=== PATIENT | male | born 1970 ===

== ENCOUNTER 2016-12-12 12:07 | Emergency (ER) | payer OTHER ==
[2016-12-12 12:24] VITALS: BP 122/85; PULSE 68; RESP 16; TEMP 98.8; O2SAT 99
[2016-12-12] MEDS ORDERED: Sodium Chloride 0.9% 1,000 ML IV STA (13:30)
--- NOTE | 2016-12-12 14:00 | ED PDOC ---
HPI: Abdomen Time Seen by Provider: 12/12/16 12:50 Chief Complaint (Nursing): Abdominal Pain Chief Complaint (Provider): abdominal pain History Per: Patient History/Exam Limitations: no limitations Additional Complaint(s): 46yo M in ED for eval of abdominal pain states that he noted pain to his abd and bloating sensation since the wknd after drinking selzter water without associated nausea vomiting diarrhea or fever. pt states that the abd pain has been improving and now only with mild cramping, however its concerned due to hx of diverticulitis. pt has GI appt January 03. denies diarrhea, bloody stool vomiting, fever Past Medical History Reviewed: Historical Data, Nursing Documentation, Vital Signs Vital Signs: Last Vital Signs Temp 98.8 F 12/12/16 12:21 Pulse 68 12/12/16 12:21 Resp 16 12/12/16 12:21 BP 122/85 12/12/16 12:21 Pulse Ox 99 12/12/16 15:13 - Medical History PMH: Diverticulitis Denies: Chronic Kidney Disease - Family History Family History: States: Unknown Family Hx - Immunization History Hx Tetanus Toxoid Vaccination: No Hx Influenza Vaccination: No Hx Pneumococcal Vaccination: No - Home Medications Home Medications: Ambulatory Orders Medication Instructions Recorded Multivit-Minerals/FA/Lycopene 1 tab PO DAILY 07/26/16 [One-A-Day Men's Tablet] Ciprofloxacin [Cipro] 500 mg PO Q12 #20 tab 07/28/16 metroNIDAZOLE [Flagyl] 500 mg PO Q8 #30 tab 07/28/16 Dicyclomine [Bentyl] 20 mg PO TID #30 tab 12/12/16 - Allergies Allergies/Adverse Reactions: Allergies Allergy/AdvReac Type Severity Reaction Status Date / Time No Known Allergies Allergy Verified 07/26/16 13:02 Review of Systems ROS Statement: Except As Marked, All Systems Reviewed And Found Negative Gastrointestinal: Positive for: Abdominal Pain (mild cramping ), Constipation. Negative for: Nausea, Vomiting Physical Exam - Reviewed Nursing Documentation Reviewed: Yes Vital Signs Reviewed: Yes - Physical Exam Appears: Positive for: Well, Non-toxic, No Acute Distress Head Exam: Positive for: ATRAUMATIC, NORMAL INSPECTION, NORMOCEPHALIC Skin: Positive for: Normal Color, Warm, DRY Eye Exam: Positive for: EOMI, Normal appearance, PERRL Cardiovascular/Chest: Positive for: Regular Rate, Rhythm Respiratory: Positive for: CNT, Normal Breath Sounds Back: Positive for: Normal Inspection Extremity: Positive for: Normal ROM Neurologic/Psych: Positive for: Alert, Oriented - Laboratory Results Result Diagrams: 12/12/16 13:50 12/12/16 13:50 - ECG O2 Sat by Pulse Oximetry: 99 - Progress ED Course And Treament: impression: colitis vs constipation-improving. will get flat and upright xray of abd and basic labs, fluids and pepcid- re-eval . Pt with elevated bilirubin pt will get UR of RUQ. Medical Decision Making Medical Decision Making: US and flat and upright abs xray are negative for any acute pathology other than mild constipation pt with elevated bilirubin will need f/u with pmd for f.u stable VS and well appearing no acute pain in ED Disposition - Clinical Impression Clinical Impression: Abdominal discomfort, Elevated bilirubin - Patient ED Disposition Is Patient to be Admitted: No Counseled Patient/Family Regarding: Studies Performed, Diagnosis, Need For Followup, Rx Given - Disposition Referrals: [facility] [Outside] [facility] [Outside] Disposition: Routine/Home Disposition Time: 16:05 Condition: STABLE Prescriptions: Dicyclomine [Bentyl] 20 mg PO TID #30 tab Instructions: Acute Abdominal Pain (ED)
[2016-12-12 14:11] LABS: BASO % 0.3 % (0.0-2.0); EOS # 0.4 K/uL (0.0-0.7); EOS % 3.8 % (0.0-4.0); HEMATOCRIT 43.9 % (35.0-51.0); LYMPH # 2.3 K/uL (1.0-4.3); LYMPH % 21.9 % (20.0-40.0); MEAN CELL VOLUME 90.4 fl (80.0-94.0); MEAN CORPUSCULAR HEMOGLOBIN 30.5 pg (27.0-31.0); MEAN CORPUSCULAR HGB CONC 33.7 g/dL (33.0-37.0); MEAN PLATELET VOLUME 11.4 fl (7.2-11.7); MONO # 1.2 K/uL (0.0-0.8); MONO % 11.9 % (0.0-10.0); NEUT # 6.5 K/uL (1.8-7.0); NEUT % 62.1 % (50.0-75.0); RED CELL DISTRIBUTION WIDTH 13.3 % (11.5-14.5); WHITE BLOOD COUNT 10.5 K/uL (4.8-10.8)
[2016-12-12 14:17] LABS: ALB/GLOB RATIO 1.3 (1.0-2.1); ALKALINE PHOSPHATASE 79 U/L (38-126); ALT/SGPT 33 U/L (21-72); AST/SGOT 22 U/L (17-59); BLOOD UREA NITROGEN 10 mg/dl (9-20); CALCIUM 9.4 mg/dL (8.4-10.2); CARBON DIOXIDE 28 mmol/L (22-30); CHLORIDE 103 mmol/L (98-107); GFR AFRICAN-AMERICAN > 60; GLUCOSE,RANDOM 90 mg/dL (75-110); LIPASE 45 U/L (23-300); POTASSIUM 3.8 MMOL/L (3.6-5.0); SODIUM 142 mmol/l (132-148); TOTAL PROTEIN 8.1 G/DL (6.3-8.2)
[2016-12-12 14:43] LABS: RBC URINE 5 /hpf (0-3); URINE BILIRUBIN NEGATIVE (NEGATIVE); URINE BLOOD NEGATIVE (NEGATIVE); URINE COLOR AMBER (YELLOW); URINE GLUCOSE (UA) NEG (Normal); URINE KETONE TRACE mg/dL (NEGATIVE); URINE LEUKOCYTE ESTERASE NEG Leu/uL (Negative); URINE PROTEIN 30 mg/dL (NEGATIVE); WBC URINE 1 /hpf (0-5)
--- NOTE | 2016-12-12 16:16 | RAD ---
HISTORY: abdominal pain and bloating. COMPARISON: No prior. FINDINGS: BOWEL: Normal. No obstruction. No free air. BONES: Normal. OTHER FINDINGS: None. IMPRESSION: No significant or acute findings to account for/ related to the clinical presentation.
--- NOTE | 2016-12-12 16:28 | US ---
HISTORY: RUQ pain with elevated bilirubin COMPARISON: None. TECHNIQUE: Sonographic evaluation of the right upper quadrant of the abdomen. FINDINGS: LIVER: Measures 14.2 cm in length. Patent portal vein. Portal venous flow: Hepatopetal. Unremarkeable echogenicity of the liver parenchyma. No mass. No intrahepatic bile duct dilatation. GALLBLADDER: Unremarkable. No gallstones. COMMON BILE DUCT: Measures 3.1 mm. No stones. No dilatation. PANCREAS: Obscured by overlying bowel gas. Non diagnostic assessment of the pancreas. RIGHT KIDNEY: Measures 6.1 x 12.4 cm in length. Normal echogenicity. No calculus, mass, or hydronephrosis. AORTA: No aneurysmal dilatation. IVC: Unremarkable. OTHER FINDINGS: None . IMPRESSION: No acute findings related to/accounting for the clinical presentation. Limitations of the current examination: Nondiagnostic assessment of the pancreas obscured by overlying bowel gas.
== END 2016-12-12 16:20 | disposition home or self-care (01) ==
LOC: H.ER 12:07
DX: R10.9 Unspecified abdominal pain (principal); E80.7 Disorder of bilirubin metabolism, unspecified

== ENCOUNTER 2017-07-09 16:08 | Emergency (ER) | payer OTHER ==
[2017-07-09 16:38] VITALS: BP 133/82; PULSE 60; RESP 16; TEMP 97.7; O2SAT 100
--- NOTE | 2017-07-09 17:08 | ED PDOC ---
Upper Extremity Pain/Injury Time Seen by Provider: 07/09/17 16:50 Chief Complaint (Nursing): Upper Extremity Problem/Injury Chief Complaint (Provider): Left forearm injury History Per: Patient History/Exam Limitations: no limitations Onset/Duration Of Symptoms: Other (3 weeks) Additional Complaint(s): Patient is a 46 y/o male with no significant past medical history presenting to the emergency department for pain in his left forearm following an injury in which a box fell on his forearm three weeks ago. Reports pain when pronating and supinating his wrist. Also notes a rash on his thighs that comes and goes during the winter season. He is requesting cream for the rash. Denies any other complaints. PCP: none provided. Past Medical History Reviewed: Historical Data, Nursing Documentation, Vital Signs Vital Signs: Last Vital Signs Temp 97.7 F 07/09/17 16:35 Pulse 60 07/09/17 16:35 Resp 16 07/09/17 16:35 BP 133/82 07/09/17 16:35 Pulse Ox 100 07/09/17 16:35 - Medical History PMH: Diverticulitis Denies: Chronic Kidney Disease - Family History Family History: States: Unknown Family Hx - Immunization History Hx Tetanus Toxoid Vaccination: No Hx Influenza Vaccination: No Hx Pneumococcal Vaccination: No - Home Medications Home Medications: Ambulatory Orders Medication Instructions Recorded Multivit-Min/Folic/Vit K/Lycop 1 tab PO DAILY 07/26/16 [One-A-Day Men's Tablet] Ciprofloxacin [Cipro] 500 mg PO Q12 #20 tab 07/28/16 metroNIDAZOLE [Flagyl] 500 mg PO Q8 #30 tab 07/28/16 Dicyclomine [Bentyl] 20 mg PO TID #30 tab 12/12/16 DiphenhydrAMINE [Benadryl] 50 mg PO Q6 PRN #24 cap 07/09/17 Hydrocortisone 1% Cream [Cortizone 0.5 gm TP BID #1 tube 07/09/17 1% Cream] Naproxen 1 tab PO Q12 PRN #14 tab 07/09/17 - Allergies Allergies/Adverse Reactions: Allergies Allergy/AdvReac Type Severity Reaction Status Date / Time No Known Allergies Allergy Verified 07/26/16 13:02 Review of Systems Musculoskeletal: Positive for: Arm Pain (left forearm pain with pronating and supinating wrist) Skin: Positive for: Rash (intermittent) Physical Exam - Reviewed Nursing Documentation Reviewed: Yes Vital Signs Reviewed: Yes - Physical Exam Appears: Positive for: Well, Non-toxic, No Acute Distress Head Exam: Positive for: ATRAUMATIC, NORMAL INSPECTION, NORMOCEPHALIC Skin: Positive for: Normal Color, Warm, Dry Eye Exam: Positive for: Normal appearance Neck: Positive for: Normal, Painless ROM, Supple Cardiovascular/Chest: Positive for: Regular Rate, Rhythm Respiratory: Negative for: Accessory Muscle Use, Respiratory Distress Extremity: Positive for: Normal ROM, Other (Mild erythema and papillary lesions on anterior medial region of thighs bilaterally). Negative for: Tenderness ( left wrist), Pedal Edema Neurologic/Psych: Positive for: Alert, Oriented (x3) - ECG O2 Sat by Pulse Oximetry: 100 (RA) Pulse Ox Interpretation: Normal - Progress ED Course And Treament: xry of forearm: no acute injury xry of elbow: no acute injury Medical Decision Making Medical Decision Making: Time: 16:55 Initial impression: Left forearm injury Initial plan: Left elbow x-ray Left forearm x-ray Scribe Attestation: Documented by Carmina Jurado, acting as a scribe for LINWOOD Ware. Provider Scribe Attestation: All medical record entries made by the Scribe were at my direction and personally dictated by me. I have reviewed the chart and agree that the record accurately reflects my personal performance of the history, physical exam, medical decision making, and the department course for this patient. I have also personally directed, reviewed, and agree with the discharge instructions and disposition. Disposition - Clinical Impression Clinical Impression: Forearm contusion - Patient ED Disposition Is Patient to be Admitted: No - Disposition Disposition: Routine/Home Disposition Time: 17:30 Condition: FAIR Prescriptions: DiphenhydrAMINE [Benadryl] 50 mg PO Q6 PRN #24 cap PRN Reason: Itching / Pruritus Hydrocortisone 1% Cream [Cortizone 1% Cream] 0.5 gm TP BID #1 tube Naproxen 1 tab PO Q12 PRN #14 tab PRN Reason: Pain, Moderate (4-7) Instructions: Acute Rash (DC), Contusion in Adults (ED) Forms: [facility] (Lao)
--- NOTE | 2017-07-09 17:24 | RAD ---
PROCEDURE: Radiographs of the Left Forearm HISTORY: foaream injury COMPARISON: None available. TECHNIQUE: Frontal and lateral views obtained. FINDINGS: BONES: No fracture or destructive lesion. JOINT SPACES: Unremarkable. OTHER FINDINGS: None. IMPRESSION: Unremarkable radiographs of the left forearm.
--- NOTE | 2017-07-10 10:54 | RAD ---
PROCEDURE: Radiographs of the left elbow. HISTORY: elbow injury COMPARISON: No prior. FINDINGS: BONES: No fracture. JOINTS: Unremarkable. SOFT TISSUES: Normal. JOINT EFFUSION: None. OTHER FINDINGS: None IMPRESSION: No demonstrated fracture or dislocation.
== END 2017-07-09 18:07 | disposition home or self-care (01) ==
LOC: H.ER 16:08
DX: S50.12XA Contusion of left forearm, initial encounter (principal); W22.8XXA Striking against or struck by other objects, initial encounter; Y92.89 Other specified places as the place of occurrence of the external cause

== ENCOUNTER 2018-09-17 16:33 | Emergency (ER) | payer OTHER ==
[2018-09-17 17:03] VITALS: BP 136/84; PULSE 69; RESP 16; TEMP 98.2; O2SAT 97
--- NOTE | 2018-09-17 17:54 | ED PDOC ---
HPI: Skin/Bite Injury Time Seen by Provider: 09/17/18 17:10 Chief Complaint (Nursing): Abnormal Skin Integrity Chief Complaint (Provider): Abnormal Skin Integrity History Per: Patient History/Exam Limitations: no limitations Onset/Duration Of Symptoms: Days (10x) Current Symptoms Are (Timing): Still Present Quality Of Symptoms: Itching Severity: Moderate Additional Complaint(s): 47 year old male with no pertinent past medical history presents to the ED for an evaluation of a rash to his bilateral upper arms ongoing for 10x days. Patient states that every year, for more than the past 5x years, he has been developing this rash which sometimes worsens and covers his whole body. Patient reports taking 3x tabs of prednisone 3x days ago, which he was prescribed for his last rash. Patient denies taking any other medications. Patient states that he went to a ultrasound spec 5x years ago to be evaluated, but it did not help. Patient states that he has an appointment with a ultrasound spec tomorrow. Patient does not know the cause, and denies using any new detergents, soaps, or mediations, and no one at home has this same rash. Patient states that the rash is itchy and goes to different parts of his body, this time it is only on his upper arms. Patient denies having lip swelling, tongue swelling, difficulty swallownuig, or difficulty breathing. Patient states that last time he was seen here, he had a shot in his butt which seemed to help his symptoms. PMD: Daniel Mcguire Jr Lead Setter: Past Medical History Reviewed: Historical Data, Nursing Documentation, Vital Signs Vital Signs: Last Vital Signs Temp 98.2 F 09/17/18 17:01 Pulse 69 09/17/18 17:01 Resp 16 09/17/18 17:01 BP 136/84 09/17/18 17:01 Pulse Ox 97 09/17/18 17:01 CARINA Report Viewed: Yes - Medical History PMH: Diverticulitis Denies: Chronic Kidney Disease - Family History Family History: States: No Known Family Hx - Social History Current smoker - smoking cessation education provided: No Alcohol: None Drugs: Denies - Immunization History Hx Tetanus Toxoid Vaccination: No Hx Influenza Vaccination: No Hx Pneumococcal Vaccination: No - Home Medications Home Medications: Ambulatory Orders Medication Instructions Recorded Multivit-Min/Folic/Vit K/Lycop 1 tab PO DAILY 07/26/16 [One-A-Day Men's Tablet] Ciprofloxacin [Cipro] 500 mg PO Q12 #20 tab 07/28/16 metroNIDAZOLE [Flagyl] 500 mg PO Q8 #30 tab 07/28/16 Dicyclomine [Bentyl] 20 mg PO TID #30 tab 12/12/16 DiphenhydrAMINE [Benadryl] 50 mg PO Q6 PRN #24 cap 07/09/17 Hydrocortisone 1% Cream [Cortizone 0.5 gm TP BID #1 tube 07/09/17 1% Cream] Naproxen 1 tab PO Q12 PRN #14 tab 07/09/17 DiphenhydrAMINE [Benadryl] 25 mg PO Q6 PRN #20 cap 09/17/18 Hydrocortisone 0.5% CREAM 30 applic EXT TID PRN #1 tube 09/17/18 [Cortizone 0.5% CREAM] Methylprednisolone [Medrol Dose 4 mg PO DAILY #21 mg 09/17/18 Pack (21 tabs)] - Allergies Allergies/Adverse Reactions: Allergies Allergy/AdvReac Type Severity Reaction Status Date / Time No Known Allergies Allergy Verified 09/17/18 17:01 Review of Systems ROS Statement: Except As Marked, All Systems Reviewed And Found Negative ENT: Negative for: Throat Swelling ((-) tongue swelling, (-) difficulty swallowing, (-) difficulty breathing) Skin: Positive for: Rash (bilateral upper arms, itchy) Physical Exam - Reviewed Nursing Documentation Reviewed: Yes Vital Signs Reviewed: Yes - Physical Exam Comments: GENERAL APPEARANCE: Patient is awake, alert, oriented x 3, well-appearing, in no acute distress. SKIN: bilateral upper inner arms: mild erythematous rash which blanches. (-) ves icles, (-) signs of infections, (-) swelling Otherwise (-) excoriations, (-) drainage, (-) crusting of lesions is present. HENT: (-) conjunctival injection, (-) chemosis. Oropharynx: clear (-) tongue or lip swelling, (-) tonsillar exudates, (-) erythema. Airway: patent (-) stridor, (-) hoarseness. Mucous membranes moist. Nares: Patent (-) rhinorrhea. NECK: (-) lymphadenopathy, (-) tenderness. CARDIOVASCULAR: Normal rate and rhythm. (-) murmur, (-) gallop. CHEST: (-) rales, (-) wheezing, (-) dyspnea, (-) stridor. lungs clear, Breath sounds equal bilaterally. ABDOMEN: Soft. (-) tenderness, (-) distention, (-) HSM. NEURO: Mental status: Patient is alert, oriented, and with normal strength and tone. - ECG O2 Sat by Pulse Oximetry: 97 (RA) Pulse Ox Interpretation: Normal Medical Decision Making Medical Decision Makin:10 Initial impression: 47 year old male with a rash Plan: Reviewed patient's previous visit from 2016. Patient was treated with toradol. Discussed with patient that toradol is used for pain, which he had a separate complaint of and was treated for. Discussed with him that the shot will not help the rash and a steroid shot is not necessary today due to minor rash. Patient is medically stable, and requires no further treatment in the ED at this time. Patient will be discharged home with Rx for benadryl, hydrocortisone, and medrol. Counseling was provided and all questions were answered regarding diagnosis and need for follow up with ultrasound spec tomorrow as scheduled. There is agreement to discharge plan. Return if symptoms persist or worsen. Discussed diagnosis, treatment, return precautions and f/u with pt who is understanding and stable for dc ScribeAttestation: Documented byLilian Garcia, acting as a scribe for Ben Mcneill PA-C. Provider ScribeAttestation: All medical record entries made by the Scribe were at my direction and personally dictated by me. I have reviewed the chart and agree that the record accurately reflects my personal performance of the history, physical exam, medical decision making, and the department course for this patient. I have also personally directed, reviewed, and agree with the discharge instructions and disposition. Disposition - Clinical Impression Clinical Impression: Acute dermatitis - Disposition Referrals: Nola Mcfarland MD [Medical Doctor] - Disposition Time: 17:22 Condition: STABLE Additional Instructions: Return to ED for new or worsening symptoms, fever >100.4, lip or tongue swelling, difficulty breathing, increase redness or swelling. Follow up with the ultrasound spec as scheduled tomorrow. Take medications as prescribed. Do not drive when taking Benadryl Prescriptions: DiphenhydrAMINE [Benadryl] 25 mg PO Q6 PRN #20 cap PRN Reason: Itching / Pruritus Hydrocortisone 0.5% CREAM [Cortizone 0.5% CREAM] 30 applic EXT TID PRN #1 tube PRN Reason: Itching / Pruritus Methylprednisolone [Medrol Dose Pack (21 tabs)] 4 mg PO DAILY #21 mg Instructions: Skin Rash, Itchy Skin Forms: [facility] (Burkinan) Print Language: WELSH
== END 2018-09-17 17:48 | disposition home or self-care (01) ==
LOC: H.ER 16:33
DX: L30.9 Dermatitis, unspecified (principal)